=== PATIENT | male | born 1925 | race Caucasian/White ===

== ENCOUNTER 2016-11-11 12:36 | Emergency (ER) | payer MEDICARE ==
[~2016-11-11] VITALS: Ht 185.4 cm; Wt 96.4 kg
[2016-11-11 12:39] VITALS: BP 122/74; PULSE 78; RESP 20; O2SAT 97
[2016-11-11 13:21] LABS: BASOPHILS % (AUTO) 0.3 % (0-3); EOSINOPHILS % (AUTO) 0 % (0-5); MONOCYTES % (AUTO) 16.3 % (4-12); Mean Corpuscular Hemoglobin 30.2 pg (27.0-35.0); Mean Corpuscular Volume 94.6 fL (81-100); NEUTROPHILS % (AUTO) 71.8 % (40-74); Platelet Count 108 bil/L (150-400)
[2016-11-11 14:54] LABS: INR 1.75 ratio
--- NOTE | 2016-11-11 14:59 | ED.REPORT ---
HPI-Abd Pain M 40 and Over Date of Service Nov 11, 2016 ED Provider: Alexei Angel DO Silvio Huertas is a very pleasant 89-year-old male with past medical history significant for A. fib (on warfarin), BPH, hypertension and CAD with quadruple bypass, renal myopathy. He originally presented to the urgent care with left lower quadrant abdominal pain 3 days with reported fevers, temperature at 102, polyuria, generalized weakness 2 days of chest pain with nonproductive cough. He denies nausea vomiting, headache or coming GI symptoms. Does not endorse dysuria or hematuria. Patient states he urinary tract infections though does endorse a significant family history for kidney cancer as well as prostate cancer (father and his brother) he is followed as an outpatient by urology for similar symptoms. Nursing Notes Stated Complaint: LEFT ABDOMINAL PAIN Chief Complaint: Male Abdominal Pain Nursing Notes Reviewed: Yes Allergies: Uncoded Allergies: NKA (Allergy, Unknown, 09/24/04) Scheduled Levofloxacin (Levaquin) 500 Mg Tablet 500 MG PO DAILY General Time Seen by MD: 14:00 Chief Complaint Abdominal pain Hx Obtained From: Patient Arrived By: Walk-in Sudden in Onset?: No Onset Occurred: 3 days ago Review of Systems Constitutional: Reports: Chills, Fever, Lethargy Respiratory: Reports: Non-productive cough, Denies: Dyspnea on exertion Cardiovascular: Reports: Chest pain, Denies: Palpitations GI: Reports: Abdominal pain, Nausea, Denies: Belching, Bloody/tarry stool, Constipation, Diarrhea, Mucousy stool, Vomiting Male: Reports Flank pain, Reports Urinary frequency, Reports Urinary urgency , Reports Urination decreased, Denies Dysuria, Denies Hematuria, Denies Incontinence Physical Exam General: No acute distress, well-developed, well-nourished, appropriately interactive HEENT: Normocephalic, atraumatic. External ears without defect. Pupils equal, round, and reactive to light and accommodation. Neck: Supple with full range of motion. No jugular venous distension. Thyroid difficult to palpate secondary to body habitus. Cardiovascular: Regular rate and rhythm with no murmurs, rubs, or gallops appreciated Pulmonary: Bilateral expiratory wheezes. Normal respiratory effort with no use of accessory muscles. Abdomen: Bowel tones present. Soft, tender to palpation left lower quadrant. No rebound tenderness rigidity or guarding. Flank: Left CVA mild tenderness to palpation. GI: Digital rectal exam showed boggy prostate which was extremely tender to palpation. Extremities: No clubbing, cyanosis, edema, or lymphadenopathy appreciated. Neurological: Cranial nerves grossly intact. Normal muscle strength, tone, and bulk. Reflexes, coordination, and sensory function within normal limits. No known gait impairment. Psychiatric: Normal mood and affect. Alert and oriented to person, place, and time. Initial Vital Signs Vital Signs (First) Date Time Temp Pulse Resp B/P Pulse Ox O2 Delivery O2 Flow Rate FiO2 11/11/16 12:39 36.7 78 20 122/74 97 Room Air Initial VS: Reviewed Interpretation & Diagnostics CT KUB IMPRESSION: 1. No imaging explanation for left flank pain. 2. 2.1 cm superomedial left renal cortical cyst is unchanged, as well as 8 mm lateral left renal exophytic hyperdense cyst. 3. 3.2 cm infrarenal abdominal aortic aneurysm is not significantly changed since 2013. 4. Trace dependent left pleural effusion is of uncertain etiology. Dictated by: Ross Qiu M.D. on 11/11/2016 at 15:58 X-RAY CHEST ONE VIEW IMPRESSION: Cardiomegaly as before, without acute cardiopulmonary disease. Dictated by: Ross Qiu M.D. on 11/11/2016 at 16:12 Lab Results Interpretation Result Diagram: 11/11/16 1315 11/11/16 1315 Test 11/11/16 13:15 11/11/16 15:15 White Blood Count 6.4th/mm3 (3.8-10.1) Red Blood Count 4.10mil/mm3 (4.40-5.80) Hemoglobin 12.4g/dL (13.8-17.2) Hematocrit 38.8% (41.0-50.0) Mean Corpuscular Volume 94.6fL (81-100) Mean Corpuscular Hemoglobin 30.2pg (27.0-35.0) Mean Corpuscular Hemoglobin Concent 32.0% (32.0-37.0) Red Cell Distribution Width 13.1% (12.3-15.4) Platelet Count 108bil/L (150-400) Neutrophils (%) (Auto) 71.8% (40-74) Lymphocytes (%) (Auto) 11.1% (14-46) Monocytes (%) (Auto) 16.3% (4-12) Eosinophils (%) (Auto) 0% (0-5) Basophils (%) (Auto) 0.3% (0-3) Prothrombin Time 18.9sec (8.1-12.5) Prothromb Time International Ratio 1.75ratio Sodium Level 130mEq/L (134-144) Potassium Level 4.5mEq/L (3.5-5.2) Chloride Level 95mEq/L (97-108) Carbon Dioxide Level 22mmol/L (18-29) Blood Urea Nitrogen 28mg/dL (8-27) Creatinine 1.25mg/dL (0.76-1.27) Estimat Glomerular Filtration Rate 58mL/min (>59) Glucose Level 143mg/dL (60-99) Lactic Acid Level 1.0mmol/L (0.4-2.0) Calcium Level 8.2mg/dL (8.5-10.1) Magnesium Level 2.0mg/dL (1.6-2.6) Total Bilirubin 1.0mg/dL (0.0-1.2) Aspartate Amino Transf (AST/SGOT) 31U/L (0-50) Alanine Aminotransferase (ALT/SGPT) 15U/L (0-44) Alkaline Phosphatase 89U/L (25-160) Troponin T < 0.010ug/L (0.0-0.011) Total Protein 6.6g/dL (6.4-8.4) Albumin 3.7g/dL (3.4-5.0) Lipase 26U/L (13-60) Hold Blackburn Top Tube Received (Received) Hold Urine Received (Received) ECG Interpretation ECG Interpretation: A. fib, incomplete right bundle branch block, abnormal T waves, consider ischemia in anteriolateral leads. Interpreted by: ED physician (resident physician) Re-Eval/Medical Decision Med Decision/Clinical Course Per outpatient records patient has past medical history significant for UTIs, BPH, LUTs, incomplete bladder emptying. He has presented in the past with similar symptoms and given Flomax. Secondary to his chest pain EKG showed A. fib consistent with previous diagnosis , incomplete right bundle branch block possible abnormal T waves consideration of ischemia. Patient's potassium 4.5 and troponin negative. CBC CMP unremarkable with the exception of mild hyponatremia and hypochloremia. Urinalysis unremarkable the exception of 50+ RBCs. CT noncontrast showed no evidence of kidney stones. It did however show a enlarged and boggy prostate. Physical exam findings confirmed this. Patient started on levofloxacin as patient's is currently taking an NICOLE inhibitor. Counseled Regarding: Diagnosis, Lab results, Need for follow-up, When/why to return to ED Discharge & Departure Primary Impression: Prostatitis Prostatitis type: acute Qualified Code: N41.0 - Acute prostatitis Disposition: Home Vital Signs - All Vital Signs Date Time Temp Pulse Resp B/P Pulse Ox O2 Delivery O2 Flow Rate FiO2 11/11/16 17:15 36.7 70 16 126/76 99 Room Air 11/11/16 12:39 36.7 78 20 122/74 97 Room Air )( All Prior VS Reviewed: Yes Condition: Stable Additional Instructions: CT imaging of the area showed evidence that you have developed prostatitis ( inflammation of your prostate gland). No kidney stones were identified and your kidneys themselves did not show signs of inflammation. I am giving you a prescription for an antibiotic called Levaquin. Please take 500 mg (1 tab) of this medication every day for the next 28 days. Please follow-up with your primary care provider regarding today's emergency department visit and to ensure resolution of your current symptoms. If your current symptoms do not improve or worsen, if you develop significant abdominal pain, blood in your urine, dizziness, visual changes, fever with temperature or chills please return to the emergency department for additional evaluation. Referrals: Ghazal Cruz MD (PCP) Attending Statement The patient was seen and examined together with Dr. Barragan on 11/11/16 and I have added additional information to the note above. copies to: Ghazal Cruz MD, GILES A DO Nov 11, 2016 14:59 Alexei Angel DO Nov 11, 2016 18:26
--- NOTE | 2016-11-11 16:00 | DRSVH ---
PROCEDURE: CT KUB ([id number]) INDICATIONS: 89 year-old male with left flank pain. TECHNIQUE: Noncontrast 5 mm thick sections acquired from the diaphragms to the symphysis. 5 mm thick coronal an d sagittal reformats were then performed. For radiation dose reduction, the following was used: aut omated exposure control, adjustment of mA and/or kV according to patient size. COMPARISON: [facility], CT, ABDOMEN W&W/O CONTRAST, 11/22/2014, 14:50. [facility], CT, KUB - CT (PN), 11/07/2014, 16:11. FINDINGS: Image quality: Excellent. Lung bases: There is trace basal left mobile pleural effusion. Mild cardiomegaly is again noted. Urinary system: Both kidneys are normal in size. 2.1 cm superomedial left renal cortical exophytic cyst is unchanged. 8 mm lateral left renal cortical exophytic hyperdense cyst is also unchanged. No kidney stones. No hydronephrosis or perinephric fat stranding. Both ureters appear non-dilated thro ughout their expected courses. Bladder wall thickness is normal; no calcified bladder stones. Other solid organs: Liver and spleen are normal in size. Gallbladder wall thickness is normal. Jones creas is normal in contours. No adrenal nodules. Peritoneum and bowel: Unenhanced bowel loops demonstrate normal wall thickness and caliber. The kwasi endix appears normal. No free fluid or air. Nodes and vessels: No retroperitoneal or mesenteric adenopathy by size criteria. 2.9 x 3.2 cm infrar enal abdominal aortic aneurysm is not significantly changed. There is moderate aortoiliac atheroscler osis. Abdominal wall: No ventral hernias. Pelvis: No free pelvic fluid. No inguinal hernias or adenopathy. Prostate gland is normal in size. Bones: No suspicious bony lesions. No vertebral body compression fractures. There is lower thoracic spine disc degeneration. IMPRESSION: 1. No imaging explanation for left flank pain. 2. 2.1 cm superomedial left renal cortical cyst is unchanged, as well as 8 mm lateral left renal exop hytic hyperdense cyst. 3. 3.2 cm infrarenal abdominal aortic aneurysm is not significantly changed since 2013. 4. Trace dependent left pleural effusion is of uncertain etiology. Dictated by: Ross Qiu M.D. on 11/11/2016 at 15:58 Approved by: Ross Qiu M.D. on 11/11/2016 at 15:58
--- NOTE | 2016-11-11 16:14 | DRSVH ---
PROCEDURE: X-RAY CHEST ONE VIEW ([id number]) INDICATIONS: 89 year-old male with shortness of breath. TECHNIQUE: One view of the chest was acquired. COMPARISON: [facility], CR, CHEST 1VW (PORTABLE), 12/16/2013, 20:32. [facility] [place], CR, CHEST 2VW, 01/30/2010, 9:57. FINDINGS: Surgical changes and devices: Patient is status post coronary artery bypass grafting. Lungs and pleura: No pleural effusions or pneumothorax. Lungs are clear. Mediastinum: Mediastinal contours appear normal. Cardiomegaly is unchanged. There is aortic atheros clerosis. Bones and chest wall: No suspicious bony lesions. Overlying soft tissues appear unremarkable. IMPRESSION: Cardiomegaly as before, without acute cardiopulmonary disease. Dictated by: Ross Qiu M.D. on 11/11/2016 at 16:12 Approved by: Ross Qiu M.D. on 11/11/2016 at 16:12
[2016-11-11] MEDS ORDERED: LEVO500T16 PO (16:28)
[2016-11-11 17:15] VITALS: BP 126/76; PULSE 70; RESP 16; O2SAT 99
== END 2016-11-11 17:17 | disposition home or self-care (01) ==
LOC: SED 12:36
DX: N41.0 Acute prostatitis (principal); R07.9 Chest pain, unspecified; R53.1 Weakness; R05 Cough; I48.91 Unspecified atrial fibrillation; I25.10 Atherosclerotic heart disease of native coronary artery without angina pectoris; Z95.1 Presence of aortocoronary bypass graft; Z79.01 Long term (current) use of anticoagulants

== ENCOUNTER 2017-03-04 12:00 | Emergency (ER) | payer MEDICARE ==
[~2017-03-04] VITALS: Ht 188 cm; Wt 97.7 kg
[~2017-03-04 12:00] MED LIST: LEVO500T16 PO
[2017-03-04 12:03] VITALS: BP 122/62; PULSE 91; RESP 15; O2SAT 96
--- NOTE | 2017-03-04 12:15 | ED.REPORT ---
HPI-Extremity Problem Lower Date of Service Mar 04, 2017 ED Provider: Shazia Ya History of Present Illness: left 2,3 4 toes bruised, noticed about 10 days ago. denies injury. primary care is johnie. mild discomfort. Daughter reports that 2 weeks ago there was bruising on the lateral aspects of the foot which has resolved. Nursing Notes Stated Complaint: LEFT FOOT DISCOLORATION Chief Complaint: Extremity Trauma Nursing Notes Reviewed: Yes Allergies: Uncoded Allergies: NKA (Allergy, Unknown, 09/24/04) Scheduled Levofloxacin (Levaquin) 500 Mg Tablet 500 MG PO DAILY General Time Seen by MD: 12:07 Chief Complaint Toe injury left 2, Toe injury left 3, Toe injury left 4 Hx Obtained From: Patient Onset Occurred: 3 days ago Symptom Duration: Since onset Past Medical History Past Medical History A fib, CAD Denies: Asthma Reports: Atrial fibrillation Past Surgical History heart surgery 20 years ago Smoking History Former Smoker (quit 20 years ago) Social History Alcohol Use: 1-3 per week Drug Use: Denies drug use Occupation lives with in [employer] level 03/04/2017 Ambulatory Status Independent Review of Systems Basic Review of Systems Eyes: Vision NL, No discharge Hematologic: No bleeding, No bruising Psychiatric: Normal thought content Physical Exam Initial Vital Signs Vital Signs (First) Date Time Temp Pulse Resp B/P Pulse Ox O2 Delivery O2 Flow Rate FiO2 03/04/17 12:03 36.8 91 15 122/62 96 Room Air Initial VS: Reviewed, Vital signs normal General/Constitutional: Well-developed, Well-nourished Head / Eyes: Atraumatic, Normocephalic, PERRL ENT: Mucous membranes moist, Conjunctiva normal, No scleral icterus Neck: Supple, Non-tender, Full range of motion Respiratory: Breath sounds normal, Clear to auscultation, No respiratory distress Cardiovascular: Regular rate & rhythm, Heart sounds normal, Intact distal pulses Abdomen / GI: Soft, Non-tender, No guarding, No rebound, No distention Back: No CVA tenderness Lymphatic: No lymphadenopathy Upper Extremities: Vascular intact, Neuro intact, No swelling, No tenderness Skin: Warm, Dry, No cyanosis Neurologic: Alert, Oriented, Nonfocal Psychiatric: Mood/affect normal, Behavior normal, Normal thought content left foot 2 and 3 toes have superficial ecchymosis. bruising does not extend to planter surface. Bruising is superficial and extends 3/[address] the toe. The distal tip is pink and warm. No sign of decreased blood flow. General/Constitutional: Awake, Alert, No acute distress Respiratory / Chest: Atraumatic, Breath sounds NL, Breath sounds = bilat, No respiratory distress Cardiovascular: Heart rate NL, Regular rhythm, Heart sounds NL, No gallop Interpretation & Diagnostics Lab Results Interpretation Result Diagram: 03/04/17 1235 03/04/17 1235 Test 03/04/17 12:30 03/04/17 12:35 Hold Blackburn Top Tube Received (Received) White Blood Count 5.2th/mm3 (3.8-10.1) Red Blood Count 3.80mil/mm3 (4.40-5.80) Hemoglobin 11.5g/dL (13.8-17.2) Hematocrit 37.0% (41.0-50.0) Mean Corpuscular Volume 97.4fL (81-100) Mean Corpuscular Hemoglobin 30.3pg (27.0-35.0) Mean Corpuscular Hemoglobin Concent 31.1% (32.0-37.0) Red Cell Distribution Width 13.6% (12.3-15.4) Platelet Count 135bil/L (150-400) Neutrophils (%) (Auto) 65.6% (40-74) Lymphocytes (%) (Auto) 19.1% (14-46) Monocytes (%) (Auto) 13.0% (4-12) Eosinophils (%) (Auto) 1.7% (0-5) Basophils (%) (Auto) 0.4% (0-3) Prothrombin Time 21.3sec (8.1-12.5) Prothromb Time International Ratio 1.96ratio Sodium Level 136mEq/L (134-144) Potassium Level 4.7mEq/L (3.5-5.2) Chloride Level 102mEq/L (97-108) Carbon Dioxide Level 20mmol/L (18-29) Blood Urea Nitrogen 29mg/dL (8-27) Creatinine 1.29mg/dL (0.76-1.27) Estimat Glomerular Filtration Rate 56mL/min (>59) Glucose Level 140mg/dL (60-99) Calcium Level 9.1mg/dL (8.5-10.1) Total Bilirubin 0.7mg/dL (0.0-1.2) Aspartate Amino Transf (AST/SGOT) 16U/L (0-50) Alanine Aminotransferase (ALT/SGPT) 12U/L (0-44) Alkaline Phosphatase 100U/L (25-160) Total Protein 6.8g/dL (6.4-8.4) Albumin 4.0g/dL (3.4-5.0) X-Ray Interpretation Xray Interpretation: PROCEDURE: X-RAY LEFT FOOT COMPLETE, MINIMUM THREE VIEWS ([id number]) INDICATIONS: bruising on foot TECHNIQUE: 3 views of the foot were acquired. COMPARISON: None. FINDINGS: Bones: No fractures or dislocations. No suspicious bony lesions. 3 degenerative changes are present involving the talonavicular joint with an associated bone spur. There is a moderate-sized plantar calcaneal spur. Soft tissues: No tibiotalar joint effusion. Achilles tendon appears normal. IMPRESSION: 1. No acute fracture of the left foot. 2. Moderate degenerative changes of the talonavicular joint. 3. Plantar calcaneal spur. Dictated by: Joshua Moscoso M.D. on 03/04/2017 at 12:17 Approved by: Joshua Moscoso M.D. on 03/04/2017 at 12:18 US Soft Tissue/Musculoskeletal Caution: Report not yet finalized and possibly incomplete! PROCEDURE: US DUPLEX DOPPLER UNILATERAL LEG ARTERIES, LEFT INDICATIONS: bruising vs arterial occulsion in l foot TECHNIQUE: Color and pulse Doppler interrogation was performed of the left lower extremity arterial system, with image documentation. COMPARISON: None. FINDINGS: Vascular Ultrasound Procedure Report Findings(Artery of Lower Extremity)(Left) Common Femoral Artery(Distal) Velocity: 79.90 cm/s Profunda Femoris Artery(Proximal) Velocity: 120 cm/s Superficial Femoral Artery(Proximal) Velocity: 78.70 cm/s Superficial Femoral Artery(Mid-longitudinal) Velocity: 61.50 cm/s Superficial Femoral Artery(Distal) Velocity: 314.30 cm/s, 92.50 cm/s Popliteal Artery(Mid-longitudinal) Velocity: 61 cm/s Posterior Tibial Artery(Distal) Velocity: 61.50 cm/s, 55.70 cm/s Dorsalis Pedis Artery(Distal) Velocity: 36.40 cm/s Greyscale findings: Severe scattered plaque, most notably involving the distal superficial femoral artery IMPRESSION: 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 Dictated by: Yobany Waldron [facility] Interpreted: Estephania Champagne MD on 03/04/2017 at 14:23 Transcribed by: AUSTIN on 03/04/2017 at 14:26 Re-Eval/Medical Decision Med Decision/Clinical Course 89 year old male presents for evualation of discoloration of left 2 and 3 toes. Toes demonstrate clear ecchymosis, distal tip of toes are pink and warm with sensation intact distally. Cap refill less than 3 sec. X-ray is negative for fracture, INR is at 1.96. Ulttrasound shows stenosis of the femoral artery. Referred to Dr. Cruz for discussion of finding and possible treatment. No sign of clot formation or compartment syndrome. Discharge & Departure Impression: Primary Impression: Superficial bruising of toe Encounter type: initial encounter Laterality: left Additional Impression: Stenosis of left femoral artery Disposition: Home Patient Instructions: Contusions in Adults (ED), Foot Contusion (ED) Additional Instructions: The x-ray looks good. It does not show any fracture. The labs are at baseline. No evidence of increased white count or infection. Your ultrasound shows a focal stenosis , greater than 50%, of the distal femoral artery, just above the knee. You do have blood flow to your foot. I have discussed the findings with Dr. Cruz. Please make an appointment to discuss this finding and what or if anything should be done about this. In the mean time, continue with your normal activity. Your INR is at 1.96. Avoid falls. Return with any concerns. Referrals: Ghazal Cruz MD (PCP) EDSupervising Provider for APC: Dillan Perez MD copies to: Ghazal Cruz MD, Sue ARNP Mar 04, 2017 12:15 femoral artery. Referred to Dr. Cruz for discussion of finding and possible treatment. No sign of clot formation or compartment syndrome. Discharge & Departure Impression: Primary Impression: Superficial bruising of toe Encounter type: initial encounter Laterality: left Additional Impression: Stenosis of left femoral artery Disposition: Home Patient Instructions: Contusions in Adults (ED), Foot Contusion (ED) Additional Instructions: The x-ray looks good. It does not show any fracture. The labs are at baseline. No evidence of increased white count or infection. Your ultrasound shows a focal stenosis , greater than 50%, of the distal femoral artery, just above the knee. You do have blood flow to your foot. I have discussed the findings with Dr. Cruz. Please make an appointment to discuss this finding and what or if anything should be done about this. In the mean time, continue with your normal activity. Your INR is at 1.96. Avoid falls. Return with any concerns. Referrals: Ghazal Cruz MD (PCP) EDSupervising Provider for APC: Dillan Perez MD copies to: Ghazal Cruz MD, Sue ARNP Mar 04, 2017 12:15
[2017-03-04 12:42] LABS: BASOPHILS % (AUTO) 0.4 % (0-3); EOSINOPHILS % (AUTO) 1.7 % (0-5); Mean Corpuscular Hemoglobin 30.3 pg (27.0-35.0); Mean Corpuscular Volume 97.4 fL (81-100); NEUTROPHILS % (AUTO) 65.6 % (40-74); Platelet Count 135 bil/L (150-400)
[2017-03-04 12:55] LABS: INR 1.96 ratio
--- NOTE | 2017-03-04 13:19 | DRSVH ---
PROCEDURE: X-RAY LEFT FOOT COMPLETE, MINIMUM THREE VIEWS ([id number]) INDICATIONS: bruising on foot TECHNIQUE: 3 views of the foot were acquired. COMPARISON: None. FINDINGS: Bones: No fractures or dislocations. No suspicious bony lesions. 3 degenerative changes are presen t involving the talonavicular joint with an associated bone spur. There is a moderate-sized plantar calcaneal spur. Soft tissues: No tibiotalar joint effusion. Achilles tendon appears normal. IMPRESSION: 1. No acute fracture of the left foot. 2. Moderate degenerative changes of the talonavicular joint. 3. Plantar calcaneal spur. Dictated by: Joshua Moscoso M.D. on 03/04/2017 at 12:17 Approved by: Joshua Moscoso M.D. on 03/04/2017 at 12:18
[2017-03-04 14:18] VITALS: BP 118/62; PULSE 88; RESP 16; O2SAT 97
--- NOTE | 2017-03-04 14:24 | DRSVH ---
PROCEDURE: US VEINOUS LEG DUPLEX UNILATERAL, LEFT INDICATIONS: bruising vs arterial occulsion in l foot TECHNIQUE: Real-time imaging, as well as color and pulse Doppler interrogation, were performed of the lower extr emity deep veins from the inguinal ligament to the popliteal fossa. COMPARISON: None. FINDINGS: The deep veins are normally compressible, and free of intraluminal thrombus. Color and pu lse Doppler demonstrate normal phasic intraluminal flow. There is normal augmentation response to di stal compression maneuver. IMPRESSION: No deep venous thrombosis identified within the left lower extremity. Dictated by: Yobany MUNOZ Interpreted: Estephania Champagne MD on 03/04/2017 at 14:23 Transcribed by: AUSTIN on 03/04/2017 at 14:23 Approved by: Estephania Champagne MD, PhD on 03/04/2017 at 16:12
--- NOTE | 2017-03-04 14:26 | DRSVH ---
PROCEDURE: US DUPLEX DOPPLER UNILATERAL LEG ARTERIES, LEFT INDICATIONS: bruising vs arterial occulsion in l foot TECHNIQUE: Color and pulse Doppler interrogation was performed of the left lower extremity arterial system, with image documentation. COMPARISON: None. FINDINGS: Vascular Ultrasound Procedure Report Findings(Artery of Lower Extremity)(Left) Common Femoral Artery(Distal) Velocity: 79.90 cm/s Profunda Femoris Artery(Proximal) Velocity: 120 cm/s Superficial Femoral Artery(Proximal) Velocity: 78.70 cm/s Superficial Femoral Artery(Mid-longitudinal) Velocity: 61.50 cm/s Superficial Femoral Artery(Distal) Velocity: 314.30 cm/s, 92.50 cm/s Popliteal Artery(Mid-longitudinal) Velocity: 61 cm/s Posterior Tibial Artery(Distal) Velocity: 61.50 cm/s, 55.70 cm/s Dorsalis Pedis Artery(Distal) Velocity: 36.40 cm/s Greyscale findings: Severe scattered plaque, most notably involving the distal superficial femoral ar chata IMPRESSION: 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 Dictated by: Yobany Waldron [facility] Interpreted: Estephania Champagne MD on 03/04/2017 at 14:23 Transcribed by: AUSTIN on 03/04/2017 at 14:26 Approved by: Estephania Champagne MD, PhD on 03/04/2017 at 16:12
== END 2017-03-04 14:10 | disposition home or self-care (01) ==
LOC: SED 12:00
DX: S90.122A Contusion of left lesser toe(s) without damage to nail, initial encounter (principal); X58.XXXA Exposure to other specified factors, initial encounter; Y93.9 Activity, unspecified; Y92.9 Unspecified place or not applicable; Y99.9 Unspecified external cause status; I74.3 Embolism and thrombosis of arteries of the lower extremities; I25.10 Atherosclerotic heart disease of native coronary artery without angina pectoris; Z87.891 Personal history of nicotine dependence